=== PATIENT | male | born 1990 | race Two or more races ===

== ENCOUNTER 2019-12-08 20:29 | Emergency (ER) | payer OTHER ==
[~2019-12-08] VITALS: Ht 177.8 cm; Wt 86.2 kg
[2019-12-08 20:55] VITALS: BP 144/90
[2019-12-08] MEDS ORDERED: LIDOCAINE W/ EPINEPHRINE 1% 20ML VIAL ID ONE (21:15)
[2019-12-08] MEDS ORDERED: TETANUS-DIPTH-ACEL PERTUSSIS 0.5ML SYR Tdap IM ONE (22:00)
== END 2019-12-08 22:22 | disposition home or self-care (01) ==
LOC: EEVIPCON 20:29 → ER 20:29
DX: S01.01XA Laceration without foreign body of scalp, initial encounter (principal); S01.03XA Puncture wound without foreign body of scalp, initial encounter; W26.0XXA Contact with knife, initial encounter; Y93.89 Activity, other specified; Y92.89 Other specified places as the place of occurrence of the external cause; Y99.8 Other external cause status
CPT/HCPCS: 12001; 70450; 90471; 90715